=== PATIENT | male | born 1980 | race African-American/Black ===

== ENCOUNTER 2016-08-09 12:42 | Emergency (ER) | payer MEDICARE, OTHER ==
--- NOTE | ~2016-08-09 | CT71 ---
[facility] A Service of [facility] RADIOLOGY TEXT RESULTS PATIENT: YSABEL ALVES LOCATION: CANDE : 82 UNIT #: [id number] AGE: [address]: Agustin Baum MD SEX: M ORDER DR: [id number] [address] [place], [place] [address] [id number] MR#: [id number] Acc #: [id number] NAME: YSABEL ALVES : 1980 SEX: M STUDY DATE/TIME: 08/09/2016 14:13 UNIT: CANDE ROOM: STUDY DESCRIPTION: CT Head Wo Contrast Attending Physician: Agustin Baum M.D. Ordering Physician: Agustin Baum M.D. Primary Care Physician: No Primary Care Physician MEDICAL IMAGING REPORT This report is preliminary unless electronic signature is present EXAM CT head without contrast. HISTORY Procedure today. COMPARISON 04/02/2016. TECHNIQUE Unenhanced images were obtained of the brain. This CT exam was performed with one or more of the following radiation dose reduction techniques: automatic exposure control, adjustment of mA and/or kV according to patient size, and iterative reconstruction. FINDINGS There is a focus of increased density in the left frontal lobe, about a cm below the cortex. It is 12 mm in diameter and consistent with some recent hemorrhage. There is no surrounding edema. IMPRESSION There is a new 12-13 mm focus of hemorrhage in the left frontal lobe, otherwise study appears normal. Dictated by... Magdaleno Holland M.D. THIS IS AN ELECTRONICALLY VERIFIED REPORT Magdaleno Holland M.D. at 08/10/2016 3:07 PM FEL/gz [facility] A Service Community [facility] RADIOLOGY TEXT RESULTS PATIENT: YSABEL ALVES LOCATION: CANDE : 82 UNIT #: [id number] AGE: [address]: Agustin Baum MD SEX: M ORDER DR: TD: 08/10/2016 06:49 JOB #: [id number] MEDICAL IMAGING REPORT COPY
--- NOTE | ~2016-08-09 | EKG ---
PATIENT: YSABEL ALVES UNIT #: [id number] Ventricular Rate: 125 BPM Atrial Rate: 125 BPM P-R Interval: 122 ms QRS Duration: 80 ms Q-T Interval: 294 ms QTC Calculation(Bezet): 424 ms P Gallion: 70 degrees Calculated R Gallion: 93 degrees Calculated T Gallion: 28 degrees Diagnosis Line: Sinus tachycardia Diagnosis Line: Rightward axis Diagnosis Line: Borderline ECG Diagnosis Line: When compared with ECG of 02-APR-2016 04:55, Diagnosis Line: Vent. rate has increased BY 48 BPM Diagnosis Line: Nonspecific T wave abnormality now evident in Diagnosis Line: Lateral leads Diagnosis Line: Confirmed by LUIZA JONES MD ([id number]) on Diagnosis Line: 08/11/2016 12:03:50 AM INTERPRETING MD: KAREN DAVIS
[2016-08-09 11:39] LABS: BASOPHIL# 0.1 X10e3 (0-0.3); DIFF IND NO; EOSINOPHIL# 0.1 X10e3 (0-0.7); EOSINOPHIL% 0.8 % (0.0-7.0); HEMATOCRIT 48.6 % (38.0-50.0); HEMOGLOBIN 15.3 gm/dL (13.0-16.0); LYMPHOCYTE# 3.8 X10e3 (1.0-3.5); LYMPHOCYTE% 26.6 % (17.0-45.0); MEAN CELL VOLUME 104.2 FL (83-96); MEAN CORPUSCULAR HEMOGLOBIN 32.9 PG (28-34); MEAN CORPUSCULAR HGB CONC 31.6 g/dL (30-36); MEAN PLATELET VOLUME 9.9 FL (6.5-11.5); MONOCYTE# 0.8 X10e3 (0-1.0); MONOCYTE% 5.4 % (3.0-12.0); NEUTROPHIL# 9.5 X10e3 (1.5-7.1); NEUTROPHIL% 66.2 % (40-75); PLATELET COUNT 177 X10e3 (140-420); RED BLOOD COUNT 4.66 X10e (3.90-5.60); RED CELL DISTRIBUTION WIDTH 13.2 % (11.0-15.5); WHITE BLOOD COUNT 14.3 X10e3 (4.0-10.5)
[2016-08-09 12:03] LABS: ALBUMIN SERUM 4.7 g/dL (3.5-5.0); ALKALINE PHOSPHATASE 140 U/L (32-92); ALT (SGPT) 32 U/L (10-40); AST (SGOT) 40 U/L (10-42); BILIRUBIN,TOTAL 0.2 mg/dL (0.2-2.0); BLOOD UREA NITROGEN 13 mg/dL (9-23); BUN/CREATININE RATIO 10.83; CALCIUM SERUM 8.9 mg/dL (8.4-10.2); CARBON DIOXIDE 14 mmol/L (22-31); CHLORIDE 103 mmol/L (100-111); CREATININE SERUM 1.2 mg/dL (0.6-1.4); GLOM FILT RATE Estimated ABOVE60 mL/min (>60); GLUCOSE FASTING 163 mg/dL (70-110); PROTEIN TOTAL SERUM 8.2 g/dL (6.0-8.3); SODIUM 139 mmol/L (135-145)
[2016-08-09 12:04] LABS: ALCOHOL BLOOD <5 mg/dL ([, 0])
[~2016-08-09 12:42] MED LIST: KEPPRA500 MG PO
[2016-08-09 13:17] LABS: ACETAMINOPHEN <10 ug/mL; SALICYLATE <4.0 mg/dL
[2016-08-09 14:03] LABS: POC - CKMB 4.5 ng/mL (0.0-7.9); POC - TROPONIN <0.05 ng/mL (<=0.05)
[2016-08-09 14:15] LABS: AMPHETAMINE NEG (NEG); BARBITURATES NEG (NEG); BENZODIAZEPINES POS (NEG); COCAINE NEG (NEG); MARIJUANA POS (NEG); OPIATES NEG (NEG); TRICYCLIC ANTIDEPRESSANTS NEG (NEG); U METHADONE NEG (NEG)
[2016-08-09 15:16] LABS: PROTHROMBIN TIME (PATIENT) 10.3 SECONDS (9.6-11.5)
[2016-08-09 15:18] LABS: PARTIAL THROMBOPLASTIN TIME <20.0 SECONDS (23.5-31.3)
== END 2016-08-09 15:00 | disposition short-term general hospital (02) ==
LOC: CED 12:42
PROVIDERS: Emergency Medicine
DX: R56.9 Unspecified convulsions (principal)
CPT/HCPCS: 51702; 70450; 80053; 80307; 82553; 84484; 85025; 85610; 85730; 93005; 96361; 96372; 96374; 96375; 99291; G0480; J1953; J2060; J2250; J3486